=== PATIENT | male | born 1955 | race Caucasian/White ===

== ENCOUNTER → 2019-04-22 17:34 | Outpatient (CLI) | payer MEDICARE | END | disposition home or self-care (01) | LOC: D.LABREF 17:34 | PROVIDERS: ATTEND Orthopaedic Surgery | DX: M17.12 Unilateral primary osteoarthritis, left knee (principal) ==

== ENCOUNTER 2019-08-13 11:32 | Inpatient (IN) | payer MEDICARE ==
[~2019-08-13] VITALS: Ht 167.6 cm; Wt 119.0 kg
[2019-08-13] MEDS ORDERED: LISINOPRIL10 MG PO (11:42)
[2019-08-13 12:36] LABS: CALC OSMOLALITY 270 mosm/kg (275-300); CALCIUM 8.5 mg/dL (8.5-10.1); CARBON DIOXIDE 22.5 mmol/L (21.0-32.0); CHLORIDE - SERUM 96 mmol/L (98-107); CREATININE - SERUM 1.8 mg/dL (0.6-1.3); GLUCOSE 244 mg/dL (74-106); POTASSIUM - SERUM 4.8 mmol/L (3.5-5.1); SODIUM 129 mmol/L (136-145); UREA NITROGEN 25 mg/dL (7-18); eGFR NON AFRICAN AMERICAN 40 mL/min (90-120)
--- NOTE | 2019-08-13 12:40 | NUR ---
NASAL SWAB X 2 AND THROAT SWAB COLLECTED, LEBELED AT BS AND SENT TO LAB
[2019-08-13 12:42] LABS: INR 1.15 (0.85-1.17); PROTIME 13.9 SECONDS (11.6-15.0)
[2019-08-13 12:47] VITALS: BP 136/70
[2019-08-13 12:48] VITALS: BP 136/70
[2019-08-13 12:48] LABS: ALBUMIN 3.1 g/dL (3.4-5.0); ALKALINE PHOSPHATASE 85 U/L (30-120); ALT (SGPT) 44 U/L (10-68); BILIRUBIN - TOTAL 0.96 mg/dL (0.2-1.3); CKMB 4.2 U/L (0.0-3.6); CREATINE KINASE 419 UL (21-232); PROTEIN - SERUM 6.8 g/dL (6.4-8.2); THYROID STIMULATING HORMONE 0.25 uIU/mL (0.36-3.74)
[2019-08-13 12:48] LABS: HEMATOCRIT 37.6 % (42.0-54.0); LYMPHOCYTES 12.1 % (15-50); MCH 31.1 pg (26.0-34.0); MCHC 34.6 g/dL (31.0-37.0); MEAN PLATELET VOLUME 8.8 fL (7.4-10.4); NEUTROPHILS 81.8 % (40-80); PLATELET COUNT 193 10x3/uL (130-400); RBC 4.18 10x6/uL (4.20-6.10); RDW 13.5 % (11.5-14.5); WBC 3.8 10x3/uL (4.8-10.8)
[2019-08-13 12:51] LABS: TROPONIN-I < 0.017 ng/mL (0.000-0.060)
[2019-08-13 13:06] LABS: APTT 27.1 SECONDS (22.8-39.4)
--- NOTE | 2019-08-13 13:27 | NUR ---
URINE SPEC COLLECTED LABELED AT BS AND SENT TO LAB
--- NOTE | 2019-08-13 13:50 | NUR ---
RT OTAINED ABG'S PO2 75% PT PLACED ON O2 @ 2 L PNC. JOSE HOLLAND NOTIFIED
[2019-08-13 14:02] VITALS: BP 109/64
--- NOTE | 2019-08-13 14:20 | NUR ---
NICOLLE JUNG IC NOTIFIED OF PT BEING PUI.
[2019-08-13 14:25] LABS: BILIRUBIN NEGATIVE (NEGATIVE); EPITHELIAL CELLS 0-5 /hpf (0-5); GLUCOSE 100 mg/dL (NEGATIVE); KETONE NEGATIVE (NEGATIVE); NITRITE NEGATIVE (NEGATIVE); RED CELLS - URINE OCC /hpf (0-5); UROBILINOGEN 4 mg/dL (NORMAL); WHITE CELLS - URINE RARE /hpf (NEGATIVE)
[2019-08-13 14:26] LABS: AMORPHOUS SEDIMENT <1+ /lpf (NONE SEEN); BACTERIA FEW /hpf (NEGATIVE)
--- NOTE | 2019-08-13 14:34 | NUR ---
CRISIS NURSE SWAB COLLECTED, LABELED AT BS AND SENT TO LAB
--- NOTE | 2019-08-13 15:30 | NUR ---
CALLED REPORT TO ROSALINO HAINES
--- NOTE | 2019-08-13 16:32 | NUR ---
NEW PATIENT FROM ED VIA WC ACCOMPANIED BY HOSPITAL STAFF. PATIENT TRANSFERRED TO BED EASILY. PATIENT IS AWAKE ALERT AND ORIENTED X 4. ASSESMENT COMPLETED. PATIENT ORITNED TO ROOM AND CALL LIGHT. PATIENT DENIES ANY NEEDS OR PAIN. WILL CONTINUE TO MONITOR. SR UPX 2 BED IN LOW POSITION AND CALL LIGHT IN REACH.
[2019-08-13 16:38] VITALS: BP 142/76; Ht 167.6 cm; Wt 119.0 kg
--- NOTE | 2019-08-13 19:00 | NUR ---
EVENING ROUNDS COMPLETE. PT LAYING IN BED. NO SIGNS OF DISTRESS. PT DENIES ANY PAIN AT THIS TIME. CL IN REACH, BED IN LOWEST POSITION. PT EXPRESSES CONCEREN ABOUT HIS ANTIHYPERTENSIVE MEDICATIONS. UPDATED PT MED RX AND PAGED LISETTE CUNNINGHAM APN.
[2019-08-13] MEDS ORDERED: NORVASC10 MG PO (19:29)
[2019-08-13] MEDS ORDERED: CATAPRES0.1 MG PO (19:29)
[2019-08-14 04:50] LABS: HEMATOCRIT 36.1 % (42.0-54.0); HEMOGLOBIN 12.2 g/dL (13.5-17.5); MCH 30.9 pg (26.0-34.0); MCHC 33.8 g/dL (31.0-37.0); MCV 91.4 fL (80.0-100.0); MEAN PLATELET VOLUME 9.2 fL (7.4-10.4); PLATELET COUNT 193 10x3/uL (130-400); RBC 3.95 10x6/uL (4.20-6.10); RDW 13.4 % (11.5-14.5)
[2019-08-14 05:03] LABS: WBC 2.4 10x3/uL (4.8-10.8)
[2019-08-14 05:52] VITALS: BP 135/70
[2019-08-14 06:09] LABS: % SATURATION 46 % (15-55); IRON 96 ug/dl (35-150); TOTAL IRON BIND CAPACITY 205 ug/dl (260-445); UNSAT IRON BIND CAPACITY 109 ug/dl (150-375)
[2019-08-14 06:49] LABS: CALCIUM 8.6 mg/dL (8.5-10.1); CARBON DIOXIDE 21.6 mmol/L (21.0-32.0); PHOSPHOROUS 4.3 mg/dL (2.5-4.9); POTASSIUM - SERUM 4.6 mmol/L (3.5-5.1); T4 THYROXIN - FREE 1.21 ng/dL (0.76-1.46)
[2019-08-14 06:58] LABS: MAGNESIUM - SERUM 2.8 mg/dL (1.8-2.4)
[2019-08-14 06:59] LABS: CREATININE - SERUM 1.1 mg/dL (0.6-1.3)
[2019-08-14 08:16] VITALS: BP 140/82
[2019-08-14 10:59] LABS: LYMPHOCYTES 10 % (15-50); MONOCYTES 6 % (2-11); NEUTROPHILS 80 % (40-80); PLATELET ESTIMATE NORMAL
--- NOTE | 2019-08-14 12:44 | MORECARE ---
CASE MANAGEMENT DISCHARGE SUMMARY PATIENT: SAVANNA LI UNIT: [id number] ADM DATE: 08/13/19 AGE: 63 : 53 SEX: M ROOM/BED: D.2132 AUTHOR: FLORESITA DIAZ PHYSICIAN: REFERRING PHYSICIAN: JUAN MORALES MD DATE OF SERVICE: 08/14/19 Discharge Plan Patient Name: SAVANNA LI Facility: [facility]:[place] : 1955 Planned Disposition: Home Anticipated Discharge Date: 08/14/19 Discharge Date: Expected LOS: 1 Initial Reviewer: [email or web address] Initial Review Date: 08/14/2019 Generated: 08/14/19 1:43 pm DCPIA - Discharge Planning Initial Assessment Updated by [id number]: Prabhu Bernal on 08/14/19 12:40 pm * Is the patient Alert and Oriented? Yes * How many steps to enter\exit or inside your home? * PCP DR. HERNÁNDEZ * Pharmacy [facility] * Preadmission Environment Home Alone * ADLs Independent * Equipment None * Other Equipment NO MEDICAL EQUIPMENT PROVIDER PREFERENCE * List name and contact numbers for known caregivers / representatives who currently or will assist patient after discharge: LINDA ARCOS, , * Verbal permission to speak to the caregivers and representatives has been obtained from the patient. N/A * Community resources currently utilized None * Please name any agencies selected above. NONE * Additional services required to return to the preadmission environment? No * Can the patient safely return to the preadmission environment? Yes * Has this patient been hospitalized within the prior 30 days at any hospital? No Patient Name: SAVANNA LI Page [phone] at 1244 All edits/amendments must be made on the electronic document DICTATION DATE: 08/14/19 1243 PHOTOVOLTAIC POWER SYSTEMS ENGINEER: DELFINA 08/14/19 1243 RPT#: [id number] DC DATE: STATUS: ADM IN [facility] [address] [place] [address] END OF REPORT
--- NOTE | 2019-08-14 13:09 | MORECARE ---
CASE MANAGEMENT DISCHARGE SUMMARY PATIENT: SAVANNA LI UNIT: [id number] ADM DATE: 08/13/19 AGE: 63 : 53 SEX: M ROOM/BED: D.4422 AUTHOR: EMILY,DOC PHYSICIAN: REFERRING PHYSICIAN: JUAN MORALES MD DATE OF SERVICE: 08/14/19 Discharge Plan Patient Name: SAVANNA LI Facility: [facility]:[place] : 1955 Planned Disposition: Home Anticipated Discharge Date: 08/14/19 Discharge Date: Expected LOS: 1 Initial Reviewer: [email or web address] Initial Review Date: 08/14/2019 Generated: 08/14/19 2:08 pm Comments DCP- Discharge Planning Updated by [email or web address]: Prabhu Bernal on 08/14/19 12:[address] Patient Name: SAVANNA LI Admission Status: ER Accout number: [id number] Admission Date: 08-13-2019 : 1955 Admission Diagnosis: Attending: JUAN MORALES Current LOS: 1 Anticipated DC Date: 08-14-2019 Planned Disposition: Home Primary Insurance: MEDICARE A & B Discharge Planning Comments: CM SPOKE WITH PT VIA ROOM PHONE TO DISCUSS DISCHARGE PLANNING AND NEEDS. PT REPORTS LIVING AT HOME INDEPENDENTLY AND ALONE. PT HAS NO MEDICAL EQUIPMENT AND NO OUTSIDE SERVICES ASSISTING IN THE HOME. CM DISCUSSED AVAILABILITY OF HOME HEALTH, REHAB SERVICES AND MEDICAL EQUIPMENT. PT THINKS HE MIGHT NEED SOME REHAB BEFORE GOING HOME, REPORTS HE WILL CALL HIS BOSS AT "[place]" OR HIS NEPHEW WHO HAS A "WOMAN" THAT HAS A CAR AND SOMEONE WILL PICK HIM UP FOR DISCHARGE HOME. CM DISCUSSED REHAB PROVIDERS, LOCATIONS AND SERVICES. PT WOULD LIKE REHAB AT [place] IF NEEDED. CHOICE COMPLETED. PT REPORTS FEELING WEAK AND MAY LIKE REHAB AT [place] BEFORE GOING HOME. PT WILL NEED THERAPY EVALUATION ONCE CLEARED PER INFECTION CONTROL PROTOCOL. CM TO FOLLOW AND ASSIST NEEDED. Handle Attacher: Prabhu Bernal DCPIA - Discharge Planning Initial Assessment Updated by [email or web address]: Prabhu Bernal on 08/14/19 12:40 pm * Is the patient Alert and Oriented? Yes * How many steps to enter\\exit or inside your home? * PCP DR. HERNÁNDEZ * Pharmacy [facility] * Preadmission Environment Home Alone * ADLs Independent * Equipment None * Other Equipment NO MEDICAL EQUIPMENT PROVIDER PREFERENCE * List name and contact numbers for known caregivers / representatives who currently or will assist patient after discharge: LINDA ARCOS, , * Verbal permission to speak to the caregivers and representatives has been obtained from the patient. N/A * Community resources currently utilized None * Please name any agencies selected above. NONE * Additional services required to return to the preadmission environment? No * Can the patient safely return to the preadmission environment? Yes * Has this patient been hospitalized within the prior 30 days at any hospital? No Coverage Notice Reviewer: [id number] Margareth Bernal Notice Issued Date-Time: 08/14/2019 13:00 Notice Type: Patient Choice Letter Notice Delivered To: Patient Relationship to Patient: Golf Course Assistant Name: Delivery Method: HAND - Hand Delivered Temi Days: Prior Verbal Notification: Recipient Understood Notice: Yes Recipient Signature: Med Rec Note Co-signed by Attending: Coverage Notice Comment: [facility] INPATIENT REHAB SIGNATURE NOT OBTAINED DUE TO CURRENT INFECTION CONTROL PROTOCOL. Last DP export: 08/14/19 11:44 a Patient Name: SAVANNA LI Page [phone] at 1309 All edits/amendments must be made on the electronic document DICTATION DATE: 08/14/19 1308 PHYSIOTHERAPY PRACTICE MANAGER: DELFINA 08/14/19 1308 RPT#: [id number] DC DATE: STATUS: ADM IN [facility] [address] [place] [address] END OF REPORT
--- NOTE | 2019-08-14 13:22 | MORECARE ---
CASE MANAGEMENT DISCHARGE SUMMARY PATIENT: SAVANNA LI UNIT: [id number] ADM DATE: 08/13/19 AGE: 63 : 53 SEX: M ROOM/BED: D.6295 AUTHOR: EMILY,DOC PHYSICIAN: REFERRING PHYSICIAN: JUAN MORALES MD DATE OF SERVICE: 08/14/19 Discharge Plan Patient Name: SAVANNA LI Facility: [facility]:[place] : 1955 Planned Disposition: Home Anticipated Discharge Date: Discharge Date: Expected LOS: 0 Initial Reviewer: [email or web address] Initial Review Date: 08/14/2019 Generated: 08/14/19 2:21 pm Comments DCP- Discharge Planning Updated by [email or web address]: Prabhu Bernal on 08/14/19 12:[address] Patient Name: SAVANNA LI Admission Status: ER Accout number: [id number] Admission Date: 08-13-2019 : 1955 Admission Diagnosis: Attending: JUAN MORALES Current LOS: 1 Anticipated DC Date: 08-14-2019 Planned Disposition: Home Primary Insurance: MEDICARE A & B Discharge Planning Comments: CM SPOKE WITH PT VIA ROOM PHONE TO DISCUSS DISCHARGE PLANNING AND NEEDS. PT REPORTS LIVING AT HOME INDEPENDENTLY AND ALONE. PT HAS NO MEDICAL EQUIPMENT AND NO OUTSIDE SERVICES ASSISTING IN THE HOME. CM DISCUSSED AVAILABILITY OF HOME HEALTH, REHAB SERVICES AND MEDICAL EQUIPMENT. PT THINKS HE MIGHT NEED SOME REHAB BEFORE GOING HOME, REPORTS HE WILL CALL HIS BOSS AT "[place]ATION" OR HIS NEPHEW WHO HAS A "WOMAN" THAT HAS A CAR AND SOMEONE WILL PICK HIM UP FOR DISCHARGE HOME. CM DISCUSSED REHAB PROVIDERS, LOCATIONS AND SERVICES. PT WOULD LIKE REHAB AT [place] IF NEEDED. CHOICE COMPLETED. PT REPORTS FEELING WEAK AND MAY LIKE REHAB AT [place] BEFORE GOING HOME. PT WILL NEED THERAPY EVALUATION ONCE CLEARED PER INFECTION CONTROL PROTOCOL. CM TO FOLLOW AND ASSIST NEEDED. Centrifugal Chiller Technician: Prabhu Bernal DCPIA - Discharge Planning Initial Assessment Updated by [email or web address]: Prabhu Bernal on 08/14/19 12:40 pm * Is the patient Alert and Oriented? Yes * How many steps to enter\\exit or inside your home? * PCP DR. HERNÁNDEZ * Pharmacy [facility] * Preadmission Environment Home Alone * ADLs Independent * Equipment None * Other Equipment NO MEDICAL EQUIPMENT PROVIDER PREFERENCE * List name and contact numbers for known caregivers / representatives who currently or will assist patient after discharge: LINDA ARCOS, SISTER, * Verbal permission to speak to the caregivers and representatives has been obtained from the patient. N/A * Community resources currently utilized None * Please name any agencies selected above. NONE * Additional services required to return to the preadmission environment? No * Can the patient safely return to the preadmission environment? Yes * Has this patient been hospitalized within the prior 30 days at any hospital? No Coverage Notice Reviewer: [id number] Margareth Bernal Notice Issued Date-Time: 08/14/2019 13:00 Notice Type: Patient Choice Letter Notice Delivered To: Patient Relationship to Patient: Tarring Machine Operator Name: Delivery Method: HAND - Hand Delivered Temi Days: Prior Verbal Notification: Recipient Understood Notice: Yes Recipient Signature: Med Rec Note Co-signed by Attending: Coverage Notice Comment: [facility] INPATIENT REHAB SIGNATURE NOT OBTAINED DUE TO CURRENT INFECTION CONTROL PROTOCOL. Last DP export: 08/14/19 12:09 p Patient Name: SAVANNA LI Page [phone] at 1322 All edits/amendments must be made on the electronic document DICTATION DATE: 08/14/19 1321 PRODUCTION HONING MACHINE OPERATOR: DELFINA 08/14/19 1321 RPT#: [id number] DC DATE: STATUS: ADM IN [facility] [address] [place] [address] END OF REPORT
[2019-08-15] VITALS: BP 137/65
--- NOTE | 2019-08-15 00:20 | NUR ---
PATIENT IS ALERT AND ORENTED ABLE TO VOICE NEEDS AND WANTS TO STAFF. BRASE IN PLACE TO LEFT KNEE. IV TO LEFT FOREARM IN PLACE AND PATIENT WITH NO REDNESS OR PAIN. IV TO RIGHT AC PRESENTED WITH PAIN AND RED AREA WITH RESTART OF IV AFTER SHOWER, IV INFILLTRATED AND REMOVED WITH NO FUTHER PROBLEMS. BED LOW WATER AND CALL LIGHT IN REACH.
[2019-08-15 04:22] LABS: BASOPHILS 0.7 % (0-2); EOSINOPHILS 0.7 % (0-7); HEMATOCRIT 33.4 % (42.0-54.0); LYMPHOCYTES 21.7 % (15-50); MCH 30.6 pg (26.0-34.0); MCHC 32.9 g/dL (31.0-37.0); MCV 92.8 fL (80.0-100.0); MEAN PLATELET VOLUME 8.7 fL (7.4-10.4); MONOCYTES 10.7 % (2-11); NEUTROPHILS 65.2 % (40-80); PLATELET COUNT 183 10x3/uL (130-400); RDW 13.5 % (11.5-14.5); WBC 2.9 10x3/uL (4.8-10.8)
[2019-08-15 04:43] LABS: CALCIUM 7.8 mg/dL (8.5-10.1); CARBON DIOXIDE 25.6 mmol/L (21.0-32.0); CHLORIDE - SERUM 101 mmol/L (98-107); CREATININE - SERUM 0.9 mg/dL (0.6-1.3); MAGNESIUM - SERUM 2.4 mg/dL (1.8-2.4); POTASSIUM - SERUM 4.7 mmol/L (3.5-5.1); SODIUM 132 mmol/L (136-145); eGFR NON AFRICAN AMERICAN 90 mL/min (90-120)
[2019-08-15 04:48] LABS: CALC OSMOLALITY 268 mosm/kg (275-300); GLUCOSE 113 mg/dL (74-106); PHOSPHOROUS 3.2 mg/dL (2.5-4.9); UREA NITROGEN 22 mg/dL (7-18)
--- NOTE | 2019-08-15 08:00 | NUR ---
AM ROUNDS COMPLETED. INTRODUCED MYSELF TO PT PRIMARY RN FOR TODAYS SHIFT. PT IS A&O SITTING UP IN BED RESTING QUIETLY. SHIFT ASSESSMENT COMPLETED. PT STATES HE SLEPT WELL AND DENIES ANY CURRENT PAIN OR IMMEDIATE NEEDS. BREAKFAST HERE NOW. WILL ALLOW PT TO EAT. CL IN REACH, BED IN LOWEST, SIDE RAILS X2. WILL CPOC.
[2019-08-15 08:48] VITALS: BP 131/72
[2019-08-15] MEDS ORDERED: SYMBICORT 80-10.2 GM INH (09:13)
[2019-08-15] MEDS ORDERED: VENTOLIN HFA [SP8 GM INH (09:14)
--- NOTE | 2019-08-15 09:23 | NUR ---
PT SITTING UP ON EDGE OF BED AND APPEARS TO HAVE LABORED BREATHING. LUNGS HAVE EXPIRATORY WHEEZING THROUGHOUT ALL LOBES. PT STATES HE WAS COUGHING UP SOME SPUTUM BUT LESS NOW. PT DOES HAVE PRN BREATHING TREATMENT ORDERS AND I CALLED RESPIRATORY TO DELIVER ONE. PULSE OX READS 96% ON RA AND PT DOESNT NORMALLY REQUIRE OXYGEN SO I WILL TRY AND NOT USE OXYGEN UNLESS ABSOLUTELY NECCESSARY. PT VOICED THANKS AND DENIES ANY CURRENT PAIN OR NEEDS AT THIS TIME. CL IN REACH, BED IN LOWEST, SIDE RAILS X2. WILL CPOC.
[2019-08-15 10:08] LABS: ERYTHROPOIETIN 2.1 mIU/mL (2.6-18.5); THYROGLOBULIN ANTIBODY <1.0 IU/mL (0.0-0.9); THYROID PEROXIDASE ABS 18 IU/mL (0-34)
[2019-08-15] MEDS ORDERED: OMNICEF300 MG PO (10:58)
[2019-08-15] MEDS ORDERED: ZITHROMAX500 MG PO (10:58)
--- NOTE | 2019-08-15 11:25 | NUR ---
EMPTIED BEDSIDE URINAL OF 275CC DARK YELLOW URINE. PT IS GOING TO BE DISCHARGED, HE IS LYING ON HIS LEFT SIDE TALKING ON THE PHONE RIGHT NOW. NO IMMEDIATE NEEDS. WILL BEGIN DISCHARGE PAPER WORK UP AND CPOC.
--- NOTE | 2019-08-15 11:46 | NUR ---
PTS KIERRA PIV WAS ACCIDENTLY PULLED OUT IN BED. D/C WITH CATHETER TIP FULLY INTACT. PT STILL TALKING ON THE PHONE. WILL WAIT ON DISCHARGE PAPERS AND THEN REVIEW IT.
--- NOTE | 2019-08-15 12:10 | EC ---
PATIENT:SAVANNA LI DATE OF SERVICE: 08/13/19 SEX: M MEDICAL RECORD: [id number] DATE OF : [birth year] LOCATION:D.M2 D.210 AGE OF PATIENT: 63 ADMISSION DATE: 08/13/19 REFERRING PHYSICIAN: INTERPRETING PHYSICIAN: DONNIE VIDAL MD ECHOCARDIOGRAM REPORT ECHO CHARGES 4 ECHO COMPLETE Date: 08/14/19 CLINICAL DIAGNOSIS: EDEMA/SOB H/O HTN ECHOCARDIOGRAPHIC MEASUREMENTS (adult normal given) AC root (d.<3.7cm) 3.3 cm LV Septum d (<1.2 cm> 1.8 cm Valve Excursion 1.9 cm LV Septum (systole) 2.3 cm Left Atria (s.<4.0cm> 4.9 cm LVPW d(<1.2cm) 1.8 cm RV (d.<2.3cm) 3.5 cm LVPW (sytole) 2.3 cm LV diastole(<5.6CM) 5.3 cm MV E-F(>70mm/sec) cm LV systole 2.7 cm LVOT Diameter 2.2 cm MV exc.(>10mm) cm Est.ejection fraction (50-75%) % DOPPLER: LVIT cm/sec A 38.0 cm/sec E 105 cm/sec LA cm/sec RVSP 39.3 mmHg LVOT 112 cm/sec AOP1/2T m/s Asc. Ao 162 cm/sec RVOT 60.0 cm/sec RA cm/sec PA 117 cm/sec AV Gradient Peak 11.0 mmHg AV Mean 6.0 mmHg AV Area 2.1 cm MV Gradient Peak 7.0 mmHg MV Mean 1.7 mmHg MV Area cm COMMENTS: Burn Center Nurse: Chen EMOE Gear Setter: 3 Dr. Chaidez TAPE# PACS Pericardial Effusion N DATE OF SERVICE: Adequate 2D, color flow imaging, spectral Doppler, and M-Mode. LVH is present. LV internal dimensions are normal. Wall motion is normal. EF greater than or equal to 55%. Aortic valve is sclerotic. There is no evidence of stenosis by Doppler interrogation. Left atrium dilated at 4.9 cm. Mitral valve shows no prolapse. Mild MR. Right-sided chambers appear grossly normal. Ndiz-pn-[id number] TR with flow imaging. ECHOCARDIOGRAM REPORT [id number] SAVANNA LI TRANSINT:[id number] Voice Confirmation ID: [id number] DOCUMENT ID: [id number] DONNIE VIDAL MD at 1210 CC: [id number] DICTATION DATE: 08/14/191411 INSURANCE SPECIAL AGENT: 08/14/19 1644 ADM IN [facility] [address] [place] [address]
[2019-08-15 12:18] VITALS: BP 130/78
--- NOTE | 2019-08-15 12:51 | NUR ---
PT STATES HE IS TOO WEAK TO BE DISCHARGED. DISCUSSED WITH PRIMARY AND WILL HAVE PHYSICAL THERAPY EVALUATE PT FOR INPATIENT REHAB. ALSO APPARENTLY PT NEEDS TO BE BACK ON ISOLATION FOR COVID-19 FOR RETESTING EVEN THOUGH PRESUMPTIVE TEST WAS NEGATIVE. PT IS SHOWING NO S/S AND HAS BEEN AFEBRILE AND STAFF HAS BEEN INTERACTING WITHOUT PROTECTION!
--- NOTE | 2019-08-15 13:48 | MORECARE ---
CASE MANAGEMENT DISCHARGE SUMMARY PATIENT: SAVANNA LI UNIT: [id number] ADM DATE: 08/13/19 AGE: 63 : 51 SEX: M ROOM/BED: D.4846 AUTHOR: EMILY,DOC PHYSICIAN: REFERRING PHYSICIAN: JUAN MORALES MD DATE OF SERVICE: 08/15/19 Discharge Plan Patient Name: SAVANNA LI Facility: [facility]:[place] : 1955 Planned Disposition: Inpatient Rehab Anticipated Discharge Date: 08/15/19 Discharge Date: Expected LOS: 2 Initial Reviewer: [id number] Initial Review Date: 08/14/2019 Generated: 08/15/19 2:48 pm Comments DCP- Discharge Planning Updated by [id number]: Prabhu Bernal on 08/14/19 12:[address] Patient Name: SAVANNA LI Admission Status: ER Accout number: [id number] Admission Date: 08-13-2019 : 1955 Admission Diagnosis: Attending: JUAN MORALES Current LOS: 1 Anticipated DC Date: 08-14-2019 Planned Disposition: Home Primary Insurance: MEDICARE A & B Discharge Planning Comments: CM SPOKE WITH PT VIA ROOM PHONE TO DISCUSS DISCHARGE PLANNING AND NEEDS. PT REPORTS LIVING AT HOME INDEPENDENTLY AND ALONE. PT HAS NO MEDICAL EQUIPMENT AND NO OUTSIDE SERVICES ASSISTING IN THE HOME. CM DISCUSSED AVAILABILITY OF HOME HEALTH, REHAB SERVICES AND MEDICAL EQUIPMENT. PT THINKS HE MIGHT NEED SOME REHAB BEFORE GOING HOME, REPORTS HE WILL CALL HIS BOSS AT "[place]ATION" OR HIS NEPHEW WHO HAS A "WOMAN" THAT HAS A CAR AND SOMEONE WILL PICK HIM UP FOR DISCHARGE HOME. CM DISCUSSED REHAB PROVIDERS, LOCATIONS AND SERVICES. PT WOULD LIKE REHAB AT [place] IF NEEDED. CHOICE COMPLETED. PT REPORTS FEELING WEAK AND MAY LIKE REHAB AT [place] BEFORE GOING HOME. PT WILL NEED THERAPY EVALUATION ONCE CLEARED PER INFECTION CONTROL PROTOCOL. CM TO FOLLOW AND ASSIST NEEDED. Construction Management Assistant: Prabhu Bernal DCPIA - Discharge Planning Initial Assessment Updated by [id number]: rPabhu Bernal on 08/14/19 12:40 pm * Is the patient Alert and Oriented? Yes * How many steps to enter\\exit or inside your home? * PCP DR. HERNÁNDEZ * Pharmacy [facility] * Preadmission Environment Home Alone * ADLs Independent * Equipment None * Other Equipment NO MEDICAL EQUIPMENT PROVIDER PREFERENCE * List name and contact numbers for known caregivers / representatives who currently or will assist patient after discharge: SISTER CONN, * Verbal permission to speak to the caregivers and representatives has been obtained from the patient. N/A * Community resources currently utilized None * Please name any agencies selected above. NONE * Additional services required to return to the preadmission environment? No * Can the patient safely return to the preadmission environment? Yes * Has this patient been hospitalized within the prior 30 days at any hospital? No Coverage Notice Reviewer: [id number] Margareth Bernal Notice Issued Date-Time: 08/14/2019 13:00 Notice Type: Patient Choice Letter Notice Delivered To: Patient Relationship to Patient: Heater Engineer Helper Name: Delivery Method: HAND - Hand Delivered Temi Days: Prior Verbal Notification: Recipient Understood Notice: Yes Recipient Signature: Med Rec Note Co-signed by Attending: Coverage Notice Comment: [facility] INPATIENT REHAB SIGNATURE NOT OBTAINED DUE TO CURRENT INFECTION CONTROL PROTOCOL. Reviewer: [id number] Margareth Bernal Notice Issued Date-Time: 08/15/2019 11:45 Notice Type: Patient Choice Letter Notice Delivered To: Patient Relationship to Patient: Heater Engineer Helper Name: Delivery Method: HAND - Hand Delivered Temi Days: Prior Verbal Notification: Recipient Understood Notice: Yes Recipient Signature: Yes Med Rec Note Co-signed by Attending: Coverage Notice Comment: [facility] INPATIENT REHAB Last DP export: 08/14/19 12:22 p Patient Name: SAVANNA LI Page [phone] at 1348 All edits/amendments must be made on the electronic document DICTATION DATE: 08/15/19 1347 CLIENT RELATIONSHIP EXECUTIVE: DELFINA 08/15/19 1347 RPT#: [id number] DC DATE: STATUS: ADM IN [facility] [address] [place] [address] END OF REPORT
--- NOTE | 2019-08-15 14:14 | MORECARE ---
CASE MANAGEMENT DISCHARGE SUMMARY PATIENT: SAVANNA LI UNIT: [id number] ADM DATE: 08/13/19 AGE: 63 : 51 SEX: M ROOM/BED: D.2104 AUTHOR: EMILY,DOC PHYSICIAN: REFERRING PHYSICIAN: JUAN MORALES MD DATE OF SERVICE: 08/15/19 Discharge Plan Patient Name: SAVANNA LI Facility: [facility]:[place] : 1955 Planned Disposition: Inpatient Rehab Anticipated Discharge Date: 08/15/19 Discharge Date: Expected LOS: 2 Initial Reviewer: [id number] Initial Review Date: 08/14/2019 Generated: 08/15/19 3:14 pm Comments DCP- Discharge Planning Updated by [email or web address]: Prabhu Bernal on 08/15/19 1:[address] Patient Name: SAVANNA LI Encounter No: [id number] : 1955 Primary Insurance: MEDICARE A & B Anticipated DC Date: 08-15-2019 Planned Disposition: Inpatient Rehab External Planned Provider: [facility] INPATIENT REHAB DCP follow-up note: CM RECEIVED DISCHARGE ORDER, MET WITH PT IN ROOM TO DISCUSS DISCHARGE PLANNING AND NEEDS. PT REPORTS HE NEEDS REHAB PRIOR TO GOING HOME. PT LIVES ALONE. PT STILL WANTS REHAB AT [place]. CHOICE COMPLETED AND SIGNED BY PT. CM SPOKE TO JAY OF INPATIENT REHAB, PT IS PENDING PHYSICAL THERAPY EVALUATION AND WILL ACCEPT IF PT QUALIFIES. PT PLACED BACK ON ISOLATION FOR PENDING COVID 19 TESTING, REHAB WILL NOT ACCEPT UNTIL RESULT IS BACK. INPATIENT REHAB PRESCREENING ORDER OBTAINED, PT SEEN AND EVALUATED BY THERAPY. THERAPY HAS SEEN PT, CM SPOKE TO JAY WHO REPORTS THEY WILL ACCEPT PT ONCE COVID 19 TEST IS RESULTED NEGATIVE. QUINTON SPOKE TO ARIAS MCLEAN, QUINTON SPOKE TO PT VIA PHONE WHO STATES HE IS NOT ABLE TO SELF QUARANTINE HIMSELF AT HOME AND WANTS TO STAY FOR REHAB, PT UNDERSTANDS HIS COVID 19 TEST WILL HAVE TO HAVE NEGATIVE RESULT. QUINTON DISCUSSED IMPORTANT MESSAGE FROM MEDICARE AND THEN PASSED COPY TO PT IN ROOM. WHEN NEGATIVE RESULT RECEIVED FOR COVID 19 TESTING, NOTIFY INPATIENT REHAB AT [place] WHO WILL ACCEPT PT FOR INPATIENT REHAB. Prabhu Bernal, CASE MANAGEMENT DCP- Discharge Planning Updated by [id number]: Prabhu Bernal on 08/14/19 12:[address] Patient Name: SAVANNA LI Admission Status: ER Accout number: [id number] Admission Date: 08-13-2019 : 1955 Admission Diagnosis: Attending: JUAN MORALES Current LOS: 1 Anticipated DC Date: 08-14-2019 Planned Disposition: Home Primary Insurance: MEDICARE A & B Discharge Planning Comments: CM SPOKE WITH PT VIA ROOM PHONE TO DISCUSS DISCHARGE PLANNING AND NEEDS. PT REPORTS LIVING AT HOME INDEPENDENTLY AND ALONE. PT HAS NO MEDICAL EQUIPMENT AND NO OUTSIDE SERVICES ASSISTING IN THE HOME. CM DISCUSSED AVAILABILITY OF HOME HEALTH, REHAB SERVICES AND MEDICAL EQUIPMENT. PT THINKS HE MIGHT NEED SOME REHAB BEFORE GOING HOME, REPORTS HE WILL CALL HIS BOSS AT "[place]ATION" OR HIS NEPHEW WHO HAS A "WOMAN" THAT HAS A CAR AND SOMEONE WILL PICK HIM UP FOR DISCHARGE HOME. CM DISCUSSED REHAB PROVIDERS, LOCATIONS AND SERVICES. PT WOULD LIKE REHAB AT [place] IF NEEDED. CHOICE COMPLETED. PT REPORTS FEELING WEAK AND MAY LIKE REHAB AT [place] BEFORE GOING HOME. PT WILL NEED THERAPY EVALUATION ONCE CLEARED PER INFECTION CONTROL PROTOCOL. CM TO FOLLOW AND ASSIST NEEDED. Draw Operator: Prabhu Bernal DCPIA - Discharge Planning Initial Assessment Updated by [id number]: Prabhu Bernal on 08/14/19 12:40 pm * Is the patient Alert and Oriented? Yes * How many steps to enter\\exit or inside your home? * PCP DR. HERNÁNDEZ * Pharmacy [facility] * Preadmission Environment Home Alone * ADLs Independent * Equipment None * Other Equipment NO MEDICAL EQUIPMENT PROVIDER PREFERENCE * List name and contact numbers for known caregivers / representatives who currently or will assist patient after discharge: LINDA ARCOS, SISTER, * Verbal permission to speak to the caregivers and representatives has been obtained from the patient. N/A * Community resources currently utilized None * Please name any agencies selected above. NONE * Additional services required to return to the preadmission environment? No * Can the patient safely return to the preadmission environment? Yes * Has this patient been hospitalized within the prior 30 days at any hospital? No Coverage Notice Reviewer: [email or web address] - Prabhu Bernal Notice Issued Date-Time: 08/14/2019 13:00 Notice Type: Patient Choice Letter Notice Delivered To: Patient Relationship to Patient: Oracle Application Architect Name: Delivery Method: HAND - Hand Delivered Temi Days: Prior Verbal Notification: Recipient Understood Notice: Yes Recipient Signature: Med Rec Note Co-signed by Attending: Coverage Notice Comment: [facility] INPATIENT REHAB SIGNATURE NOT OBTAINED DUE TO CURRENT INFECTION CONTROL PROTOCOL. Reviewer: [id number] - Prabhu Bernal Notice Issued Date-Time: 08/15/2019 11:45 Notice Type: Patient Choice Letter Notice Delivered To: Patient Relationship to Patient: Oracle Application Architect Name: Delivery Method: HAND - Hand Delivered Temi Days: Prior Verbal Notification: Recipient Understood Notice: Yes Recipient Signature: Yes Med Rec Note Co-signed by Attending: Coverage Notice Comment: [facility] INPATIENT REHAB Last DP export: 08/15/19 12:48 p Patient Name: SAVANNA LI Page [phone] at 1414 All edits/amendments must be made on the electronic document DICTATION DATE: 08/15/19 141 MUSIC CRITIC: DELFINA 08/15/19 1414 RPT#: [id number] DC DATE: STATUS: ADM IN [facility] [address] [place] [address] END OF REPORT
--- NOTE | 2019-08-15 14:49 | NUR ---
PT GOING INTO ISOLATION DROPLET FOR COVID-19 TESTING. SHIFT REPORT GIVEN TO COVID-19 CARE NURSE ROSALINO GARDINER.
--- NOTE | 2019-08-15 15:00 | NUR ---
NEW PATIENT TRANSFER FROM ROOM 1207 TO ISOLATION ROOM 2135 FOR APPERANT AMENDED COVID 19 TEST. PATIENT IS AWARE OF REASONS FOR CHANGE. PATIENT IS CALM AND COOPERATIVE. PATIENT DENIES ANY NEEDS OR PAIN. PATIENT ORIENTED TO ROOM AND CALL LIGHT . BED IN LOWEST SR UP X 2 AND CALL LIGHT IN REACH. WILL CPOC.
--- NOTE | 2019-08-15 15:24 | NUR ---
Rehab Prescreening Consult recieved and the chart has been reviewed. He meets [facility] criteria and will be accepted if and when is COVID 19 retest is negative. Recieved a call from the Rajinder Bernal stating infection control had called and placed patient back on isolation pending a retesting for COVID 19. Called and spoke to Ambar Minor RN IC. She states the original test will be ran again and patient is not to be moved to rehab until his results are negative. Verónica Hagan RN Clinical liaison, Rehab
[2019-08-15 21:46] VITALS: BP 140/72
[2019-08-16 06:56] LABS: BASOPHILS 1.1 % (0-2); EOSINOPHILS 2.3 % (0-7); HEMATOCRIT 33.6 % (42.0-54.0); HEMOGLOBIN 11.1 g/dL (13.5-17.5); IMMATURE GRANULOCYTES 1.1 % (0-5); MCH 30.8 pg (26.0-34.0); MCV 93.3 fL (80.0-100.0); MONOCYTES 12.6 % (2-11); NEUTROPHILS 49.9 % (40-80); PLATELET COUNT 176 10x3/uL (130-400); RDW 13.5 % (11.5-14.5); WBC 2.6 10x3/uL (4.8-10.8)
[2019-08-16 07:09] LABS: CALC OSMOLALITY 268 mosm/kg (275-300); CALCIUM 8.6 mg/dL (8.5-10.1); CARBON DIOXIDE 27.9 mmol/L (21.0-32.0); CHLORIDE - SERUM 101 mmol/L (98-107); CREATININE - SERUM 0.9 mg/dL (0.6-1.3); GLUCOSE 104 mg/dL (74-106); MAGNESIUM - SERUM 2.2 mg/dL (1.8-2.4); PHOSPHOROUS 3.8 mg/dL (2.5-4.9); POTASSIUM - SERUM 4.5 mmol/L (3.5-5.1); SODIUM 134 mmol/L (136-145); eGFR NON AFRICAN AMERICAN 90 mL/min (90-120)
[2019-08-16 07:10] LABS: UREA NITROGEN 14 mg/dL (7-18)
--- NOTE | 2019-08-16 07:26 | NUR ---
PT AWAKE AND ORIENTED, NO COMPLAINTS OR CONCERNS AT THIS TIME. NO VISITORS AT BEDSIDE. CL IN REACH, SRX2.
--- NOTE | 2019-08-16 12:42 | NUR ---
PT ESCORTED OUT VIA WHEELCHAIR DOWNSTAIRS TO REHAB.
--- NOTE | 2019-08-16 15:31 | MORECARE ---
CASE MANAGEMENT DISCHARGE SUMMARY PATIENT: SAVANNA LI UNIT: [id number] ADM DATE: 08/13/19 AGE: 63 : 51 SEX: M ROOM/BED: D.3209 AUTHOR: FLORESITA DIAZ PHYSICIAN: REFERRING PHYSICIAN: JUAN MORALES MD DATE OF SERVICE: 08/16/19 Discharge Plan Patient Name: SAVANNA LI Facility: [facility]:[place] : 1955 Planned Disposition: Inpatient Rehab Anticipated Discharge Date: 08/15/19 Discharge Date: 08/16/2019 Expected LOS: 2 Initial Reviewer: [id number] Initial Review Date: 08/14/2019 Generated: 08/16/19 4:30 pm Comments DCP- Discharge Planning Updated by [id number]: Malathi Ratliff on 08/16/19 2:[address] Patient Name: SAVANNA LI Encounter No: [id number] : 1955 Primary Insurance: MEDICARE A & B Anticipated DC Date: 08-15-2019 Planned Disposition: Inpatient Rehab External Planned Provider: : LATE ENTRY. ASSESSMENT COMPLETED AT 0830 08/16/2019 DCP follow-up note: CM RECIEVED RESULTS OF COVID -19 FROM NURSING. CALLED PATIENT TO VERIFY PLANS TO TRANSFER TO REHAB UPON DC. PATIENT IS AGEABLE WITH THIS PLAN. DCC IMM PROVIDED VIA PHONE CONVERSATION. CM CALLED REHAB AND SPOKE WITH OLGA. PROVIDED RESULTS OF THE NEGATIVE COVID TEST, REHAB IS IN AGREEMENT TO ADMIT PATIENT UPON DC. CM CALLED MARICEL AND PROVIDED ASSESSMENTS. MARICEL AND DR MORALES ARE IN AGREEMENT TO DC PATIENT TO IP REHAB. Malathi Ratliff MSN,RN, CM DCP- Discharge Planning Updated by [id number]: Prabhu Bernal on 08/15/19 1:[address] Patient Name: SAVANNA LI Encounter No: [id number] : 1955 Primary Insurance: MEDICARE A & B Anticipated DC Date: 08-15-2019 Planned Disposition: Inpatient Rehab External Planned Provider: [facility] INPATIENT REH[facility] DCP follow-up note: CM RECEIVED DISCHARGE ORDER, MET WITH PT IN ROOM TO DISCUSS DISCHARGE PLANNING AND NEEDS. PT REPORTS HE NEEDS REHAB PRIOR TO GOING HOME. PT LIVES ALONE. PT STILL WANTS REHAB AT [place]. CHOICE COMPLETED AND SIGNED BY PT. CM SPOKE TO JAY OF INPATIENT REHAB, PT IS PENDING PHYSICAL THERAPY EVALUATION AND WILL ACCEPT IF PT QUALIFIES. PT PLACED BACK ON ISOLATION FOR PENDING COVID 19 TESTING, REHAB WILL NOT ACCEPT UNTIL RESULT IS BACK. INPATIENT REHAB PRESCREENING ORDER OBTAINED, PT SEEN AND EVALUATED BY THERAPY. THERAPY HAS SEEN PT, CM SPOKE TO JAY WHO REPORTS THEY WILL ACCEPT PT ONCE COVID 19 TEST IS RESULTED NEGATIVE. CM SPOKE TO ARIAS MCLEAN, CM SPOKE TO PT VIA PHONE WHO STATES HE IS NOT ABLE TO SELF QUARANTINE HIMSELF AT HOME AND WANTS TO STAY FOR REHAB, PT UNDERSTANDS HIS COVID 19 TEST WILL HAVE TO HAVE NEGATIVE RESULT. CM DISCUSSED IMPORTANT MESSAGE FROM MEDICARE AND THEN PASSED COPY TO PT IN ROOM. WHEN NEGATIVE RESULT RECEIVED FOR COVID 19 TESTING, NOTIFY INPATIENT REHAB AT [place] WHO WILL ACCEPT PT FOR INPATIENT REHAB. Prabhu Bernal, CASE MANAGEMENT DCP- Discharge Planning Updated by [id number]: Prabhu Bernal on 08/14/19 12:[address] Patient Name: SAVANNA LI Admission Status: ER Accout number: [id number] Admission Date: 08-13-2019 : 1955 Admission Diagnosis: Attending: JUAN MORALES Current LOS: 1 Anticipated DC Date: 08-14-2019 Planned Disposition: Home Primary Insurance: MEDICARE A & B Discharge Planning Comments: CM SPOKE WITH PT VIA ROOM PHONE TO DISCUSS DISCHARGE PLANNING AND NEEDS. PT REPORTS LIVING AT HOME INDEPENDENTLY AND ALONE. PT HAS NO MEDICAL EQUIPMENT AND NO OUTSIDE SERVICES ASSISTING IN THE HOME. CM DISCUSSED AVAILABILITY OF HOME HEALTH, REHAB SERVICES AND MEDICAL EQUIPMENT. PT THINKS HE MIGHT NEED SOME REHAB BEFORE GOING HOME, REPORTS HE WILL CALL HIS BOSS AT "THE STATION" OR HIS NEPHEW WHO HAS A "WOMAN" THAT HAS A CAR AND SOMEONE WILL PICK HIM UP FOR DISCHARGE HOME. CM DISCUSSED REHAB PROVIDERS, LOCATIONS AND SERVICES. PT WOULD LIKE REHAB AT [place] IF NEEDED. CHOICE COMPLETED. PT REPORTS FEELING WEAK AND MAY LIKE REHAB AT [place] BEFORE GOING HOME. PT WILL NEED THERAPY EVALUATION ONCE CLEARED PER INFECTION CONTROL PROTOCOL. CM TO FOLLOW AND ASSIST NEEDED. Store Operations Manager: Prabhu Bernal DCPIA - Discharge Planning Initial Assessment Updated by [id number]: Prabhu Bernal on 08/14/19 12:40 pm * Is the patient Alert and Oriented? Yes * How many steps to enter\\exit or inside your home? * PCP DR. HERNÁNDEZ * Pharmacy [facility] * Preadmission Environment Home Alone * ADLs Independent * Equipment None * Other Equipment NO MEDICAL EQUIPMENT PROVIDER PREFERENCE * List name and contact numbers for known caregivers / representatives who currently or will assist patient after discharge: LINDA ARCOS, SISTER, * Verbal permission to speak to the caregivers and representatives has been obtained from the patient. N/A * Community resources currently utilized None * Please name any agencies selected above. NONE * Additional services required to return to the preadmission environment? No * Can the patient safely return to the preadmission environment? Yes * Has this patient been hospitalized within the prior 30 days at any hospital? No Coverage Notice Reviewer: [id number] Margareth Bernal Notice Issued Date-Time: 08/14/2019 13:00 Notice Type: Patient Choice Letter Notice Delivered To: Patient Relationship to Patient: Gluer And Slicer Hand Name: Delivery Method: HAND - Hand Delivered Temi Days: Prior Verbal Notification: Recipient Understood Notice: Yes Recipient Signature: Med Rec Note Co-signed by Attending: Coverage Notice Comment: [facility] INPATIENT REH[facility] SIGNATURE NOT OBTAINED DUE TO CURRENT INFECTION CONTROL PROTOCOL. Reviewer: [id number] - Prabhu Bernal Notice Issued Date-Time: 08/15/2019 11:45 Notice Type: Patient Choice Letter Notice Delivered To: Patient Relationship to Patient: Gluer And Slicer Hand Name: Delivery Method: HAND - Hand Delivered Temi Days: Prior Verbal Notification: Recipient Understood Notice: Yes Recipient Signature: Yes Med Rec Note Co-signed by Attending: Coverage Notice Comment: [facility] INPATIENT [facility] Reviewer: [id number] Margareth Ratliff Notice Issued Date-Time: 08/16/2019 8:30 Notice Type: IM Discharge Notice Notice Delivered To: Patient Relationship to Patient: Gluer And Slicer Hand Name: Delivery Method: HAND - Hand Delivered Temi Days: Prior Verbal Notification: Recipient Understood Notice: Yes Recipient Signature: Yes Med Rec Note Co-signed by Attending: Coverage Notice Comment: DC IMM PROVIDED Last DP export: 08/15/19 1:14 p Patient Name: SAVANNA LI Page [phone] at 1531 All edits/amendments must be made on the electronic document DICTATION DATE: 08/16/191529 CANNON FIRE DIRECTION SPECIALIST: DELFINA 08/16/191529 RPT#: [id number] DC DATE:08/16/19 STATUS: DIS IN [facility] [address] [place] [address] END OF REPORT
--- NOTE | 2019-08-16 15:37 | MORECARE ---
CASE MANAGEMENT DISCHARGE SUMMARY PATIENT: SAVANNA LI UNIT: [id number] ADM DATE: 08/13/19 AGE: 63 : 51 SEX: M ROOM/BED: D.8690 AUTHOR: FLORESITA DIAZ PHYSICIAN: REFERRING PHYSICIAN: JUAN MORALES MD DATE OF SERVICE: 08/16/19 Discharge Plan Patient Name: SAVANNA LI Facility: [facility]:[place] : 1955 Planned Disposition: Inpatient Rehab Anticipated Discharge Date: 08/15/19 Discharge Date: 08/16/2019 Expected LOS: 2 Initial Reviewer: [id number] Initial Review Date: 08/14/2019 Generated: 08/16/19 4:37 pm Comments DCP- Discharge Planning Updated by [id number]: Malathi Ratliff on 08/16/19 2:[address] Patient Name: SAVANNA LI Encounter No: [id number] : 1955 Primary Insurance: MEDICARE A & B Anticipated DC Date: 08-15-2019 Planned Disposition: Inpatient Rehab External Planned Provider: : LATE ENTRY. ASSESSMENT COMPLETED AT 0830 08/16/2019 DCP follow-up note: CM RECIEVED RESULTS OF COVID -19 FROM NURSING. CALLED PATIENT TO VERIFY PLANS TO TRANSFER TO REHAB UPON DC. PATIENT IS AGEABLE WITH THIS PLAN. DCC IMM PROVIDED VIA PHONE CONVERSATION. CM CALLED REHAB AND SPOKE WITH OLGA. PROVIDED RESULTS OF THE NEGATIVE COVID TEST, REHAB IS IN AGREEMENT TO ADMIT PATIENT UPON DC. CM CALLED MARICEL AND PROVIDED ASSESSMENTS. MARICEL AND DR MORALES ARE IN AGREEMENT TO DC PATIENT TO IP REHAB. DC IMM PROVIDED TO PATIENT AND COPY PLACED ON CHART. Malathi Ratliff MSN,RN, CM DCP- Discharge Planning Updated by [id number]: Prabhu Bernal on 08/15/19 1:[address] Patient Name: SAVANNA LI Encounter No: [id number] : 1955 Primary Insurance: MEDICARE A & B Anticipated DC Date: 08-15-2019 Planned Disposition: Inpatient Rehab External Planned Provider: [facility] INPATIENT REHAB DCP follow-up note: CM RECEIVED DISCHARGE ORDER, MET WITH PT IN ROOM TO DISCUSS DISCHARGE PLANNING AND NEEDS. PT REPORTS HE NEEDS REHAB PRIOR TO GOING HOME. PT LIVES ALONE. PT STILL WANTS REHAB AT [place]. CHOICE COMPLETED AND SIGNED BY PT. CM SPOKE TO JAY OF INPATIENT REHAB, PT IS PENDING PHYSICAL THERAPY EVALUATION AND WILL ACCEPT IF PT QUALIFIES. PT PLACED BACK ON ISOLATION FOR PENDING COVID 19 TESTING, REHAB WILL NOT ACCEPT UNTIL RESULT IS BACK. INPATIENT REHAB PRESCREENING ORDER OBTAINED, PT SEEN AND EVALUATED BY THERAPY. THERAPY HAS SEEN PT, CM SPOKE TO JAY WHO REPORTS THEY WILL ACCEPT PT ONCE COVID 19 TEST IS RESULTED NEGATIVE. CM SPOKE TO ARIAS MCLEAN, CM SPOKE TO PT VIA PHONE WHO STATES HE IS NOT ABLE TO SELF QUARANTINE HIMSELF AT HOME AND WANTS TO STAY FOR REHAB, PT UNDERSTANDS HIS COVID 19 TEST WILL HAVE TO HAVE NEGATIVE RESULT. CM DISCUSSED IMPORTANT MESSAGE FROM MEDICARE AND THEN PASSED COPY TO PT IN ROOM. WHEN NEGATIVE RESULT RECEIVED FOR COVID 19 TESTING, NOTIFY INPATIENT REHAB AT [place] WHO WILL ACCEPT PT FOR INPATIENT REHAB. Prabhu Bernal, CASE MANAGEMENT DCP- Discharge Planning Updated by [id number]: Prabhu Bernal on 08/14/19 12:[address] Patient Name: SAVANNA LI Admission Status: ER Accout number: [id number] Admission Date: 08-13-2019 : 1955 Admission Diagnosis: Attending: JUAN MORALES Current LOS: 1 Anticipated DC Date: 08-14-2019 Planned Disposition: Home Primary Insurance: MEDICARE A & B Discharge Planning Comments: CM SPOKE WITH PT VIA ROOM PHONE TO DISCUSS DISCHARGE PLANNING AND NEEDS. PT REPORTS LIVING AT HOME INDEPENDENTLY AND ALONE. PT HAS NO MEDICAL EQUIPMENT AND NO OUTSIDE SERVICES ASSISTING IN THE HOME. CM DISCUSSED AVAILABILITY OF HOME HEALTH, REHAB SERVICES AND MEDICAL EQUIPMENT. PT THINKS HE MIGHT NEED SOME REHAB BEFORE GOING HOME, REPORTS HE WILL CALL HIS BOSS AT "THE STATION" OR HIS NEPHEW WHO HAS A "WOMAN" THAT HAS A CAR AND SOMEONE WILL PICK HIM UP FOR DISCHARGE HOME. CM DISCUSSED REHAB PROVIDERS, LOCATIONS AND SERVICES. PT WOULD LIKE REHAB AT [place] IF NEEDED. CHOICE COMPLETED. PT REPORTS FEELING WEAK AND MAY LIKE REHAB AT [place] BEFORE GOING HOME. PT WILL NEED THERAPY EVALUATION ONCE CLEARED PER INFECTION CONTROL PROTOCOL. CM TO FOLLOW AND ASSIST NEEDED. Scalp Specialist: Prabhu Bernal DCPIA - Discharge Planning Initial Assessment Updated by [id number]: Prabhu Bernal on 08/14/19 12:40 pm * Is the patient Alert and Oriented? Yes * How many steps to enter\\exit or inside your home? * PCP DR. HERNÁNDEZ * Pharmacy [facility] * Preadmission Environment Home Alone * ADLs Independent * Equipment None * Other Equipment NO MEDICAL EQUIPMENT PROVIDER PREFERENCE * List name and contact numbers for known caregivers / representatives who currently or will assist patient after discharge: LINDA ARCOS, SISTER, * Verbal permission to speak to the caregivers and representatives has been obtained from the patient. N/A * Community resources currently utilized None * Please name any agencies selected above. NONE * Additional services required to return to the preadmission environment? No * Can the patient safely return to the preadmission environment? Yes * Has this patient been hospitalized within the prior 30 days at any hospital? No Coverage Notice Reviewer: [id number] Margareth Bernal Notice Issued Date-Time: 08/15/2019 11:45 Notice Type: Patient Choice Letter Notice Delivered To: Patient Relationship to Patient: Technical Solutions Consultant Name: Delivery Method: HAND - Hand Delivered Temi Days: Prior Verbal Notification: Recipient Understood Notice: Yes Recipient Signature: Yes Med Rec Note Co-signed by Attending: Coverage Notice Comment: [facility] INPATIENT RE[facility] Reviewer: [id number] Margareth Bernal Notice Issued Date-Time: 08/14/2019 13:00 Notice Type: Patient Choice Letter Notice Delivered To: Patient Relationship to Patient: Technical Solutions Consultant Name: Delivery Method: HAND - Hand Delivered Temi Days: Prior Verbal Notification: Recipient Understood Notice: Yes Recipient Signature: Med Rec Note Co-signed by Attending: Coverage Notice Comment: [facility] INPATIENT REHAB SIGNATURE NOT OBTAINED DUE TO CURRENT INFECTION CONTROL PROTOCOL. Reviewer: [id number] Margareth Ratliff Notice Issued Date-Time: 08/16/2019 8:30 Notice Type: IM Discharge Notice Notice Delivered To: Patient Relationship to Patient: Technical Solutions Consultant Name: Delivery Method: HAND - Hand Delivered Temi Days: Prior Verbal Notification: Recipient Understood Notice: Yes Recipient Signature: Yes Med Rec Note Co-signed by Attending: Coverage Notice Comment: DC IMM PROVIDED Last DP export: 08/16/19 2:31 p Patient Name: SAVANNA LI Page [phone] at 1537 All edits/amendments must be made on the electronic document DICTATION DATE: 08/16/191536 DIRECTOR FIELD SERVICES: DELFINA 08/16/191536 RPT#: [id number] DC DATE:08/16/19 STATUS: DIS IN [facility] [address] [place] [address] END OF REPORT
--- NOTE | 2019-08-18 09:04 | MORECARE ---
CASE MANAGEMENT DISCHARGE SUMMARY PATIENT: SAVANNA LI UNIT: [id number] ADM DATE: 08/13/19 AGE: 63 : 51 SEX: M ROOM/BED: D.7710 AUTHOR: FLORESITA DIAZ PHYSICIAN: REFERRING PHYSICIAN: JUAN MORALES MD DATE OF SERVICE: 08/18/19 Discharge Plan Patient Name: SAVANNA LI Facility: [facility]:[place] : 1955 Planned Disposition: Inpatient Rehab Anticipated Discharge Date: 08/15/19 Discharge Date: 08/16/2019 Expected LOS: 2 Initial Reviewer: [id number] Initial Review Date: 08/14/2019 Generated: 08/18/19 10:04 am Comments DCP- Discharge Planning Updated by [id number]: Malathi Ratliff on 08/16/19 2:[address] Patient Name: SAVANNA LI Encounter No: [id number] : 1955 Primary Insurance: MEDICARE A & B Anticipated DC Date: 08-15-2019 Planned Disposition: Inpatient Rehab External Planned Provider: : LATE ENTRY. ASSESSMENT COMPLETED AT 0830 08/16/2019 DCP follow-up note: CM RECIEVED RESULTS OF COVID -19 FROM NURSING. CALLED PATIENT TO VERIFY PLANS TO TRANSFER TO REHAB UPON DC. PATIENT IS AGEABLE WITH THIS PLAN. DCC IMM PROVIDED VIA PHONE CONVERSATION. CM CALLED REHAB AND SPOKE WITH OLGA. PROVIDED RESULTS OF THE NEGATIVE COVID TEST, REHAB IS IN AGREEMENT TO ADMIT PATIENT UPON DC. CM CALLED MARICEL AND PROVIDED ASSESSMENTS. MARICEL AND DR MORALES ARE IN AGREEMENT TO DC PATIENT TO IP REHAB. DC IMM PROVIDED TO PATIENT AND COPY PLACED ON CHART. Malathi Ratliff MSN,RN, CM DCP- Discharge Planning Updated by [id number]: Prabhu Bernal on 08/15/19 1:[address] Patient Name: SAVANNA LI Encounter No: [id number] : 1955 Primary Insurance: MEDICARE A & B Anticipated DC Date: 08-15-2019 Planned Disposition: Inpatient Rehab External Planned Provider: [facility] INPATIENT REHAB DCP follow-up note: CM RECEIVED DISCHARGE ORDER, MET WITH PT IN ROOM TO DISCUSS DISCHARGE PLANNING AND NEEDS. PT REPORTS HE NEEDS REHAB PRIOR TO GOING HOME. PT LIVES ALONE. PT STILL WANTS REHAB AT [place]. CHOICE COMPLETED AND SIGNED BY PT. CM SPOKE TO JAY OF INPATIENT REHAB, PT IS PENDING PHYSICAL THERAPY EVALUATION AND WILL ACCEPT IF PT QUALIFIES. PT PLACED BACK ON ISOLATION FOR PENDING COVID 19 TESTING, REHAB WILL NOT ACCEPT UNTIL RESULT IS BACK. INPATIENT REHAB PRESCREENING ORDER OBTAINED, PT SEEN AND EVALUATED BY THERAPY. THERAPY HAS SEEN PT, CM SPOKE TO JAY WHO REPORTS THEY WILL ACCEPT PT ONCE COVID 19 TEST IS RESULTED NEGATIVE. CM SPOKE TO ARIAS MCLEAN, CM SPOKE TO PT VIA PHONE WHO STATES HE IS NOT ABLE TO SELF QUARANTINE HIMSELF AT HOME AND WANTS TO STAY FOR REHAB, PT UNDERSTANDS HIS COVID 19 TEST WILL HAVE TO HAVE NEGATIVE RESULT. CM DISCUSSED IMPORTANT MESSAGE FROM MEDICARE AND THEN PASSED COPY TO PT IN ROOM. WHEN NEGATIVE RESULT RECEIVED FOR COVID 19 TESTING, NOTIFY INPATIENT REHAB AT [place] WHO WILL ACCEPT PT FOR INPATIENT REHAB. Prabhu Bernal, CASE MANAGEMENT DCP- Discharge Planning Updated by [id number]: Prabhu Bernal on 08/14/19 12:[address] Patient Name: SAVANNA LI Admission Status: ER Accout number: [id number] Admission Date: 08-13-2019 : 1955 Admission Diagnosis: Attending: JUAN MORALES Current LOS: 1 Anticipated DC Date: 08-14-2019 Planned Disposition: Home Primary Insurance: MEDICARE A & B Discharge Planning Comments: CM SPOKE WITH PT VIA ROOM PHONE TO DISCUSS DISCHARGE PLANNING AND NEEDS. PT REPORTS LIVING AT HOME INDEPENDENTLY AND ALONE. PT HAS NO MEDICAL EQUIPMENT AND NO OUTSIDE SERVICES ASSISTING IN THE HOME. CM DISCUSSED AVAILABILITY OF HOME HEALTH, REHAB SERVICES AND MEDICAL EQUIPMENT. PT THINKS HE MIGHT NEED SOME REHAB BEFORE GOING HOME, REPORTS HE WILL CALL HIS BOSS AT "THE STATION" OR HIS NEPHEW WHO HAS A "WOMAN" THAT HAS A CAR AND SOMEONE WILL PICK HIM UP FOR DISCHARGE HOME. CM DISCUSSED REHAB PROVIDERS, LOCATIONS AND SERVICES. PT WOULD LIKE REHAB AT [place] IF NEEDED. CHOICE COMPLETED. PT REPORTS FEELING WEAK AND MAY LIKE REHAB AT [place] BEFORE GOING HOME. PT WILL NEED THERAPY EVALUATION ONCE CLEARED PER INFECTION CONTROL PROTOCOL. CM TO FOLLOW AND ASSIST NEEDED. Wedding Day Coordinator: Prabhu Bernal DCPIA - Discharge Planning Initial Assessment Updated by [id number]: Prabhu Bernal on 08/14/19 12:40 pm * Is the patient Alert and Oriented? Yes * How many steps to enter\\exit or inside your home? * PCP DR. HERNÁNDEZ * Pharmacy [facility] * Preadmission Environment Home Alone * ADLs Independent * Equipment None * Other Equipment NO MEDICAL EQUIPMENT PROVIDER PREFERENCE * List name and contact numbers for known caregivers / representatives who currently or will assist patient after discharge: LINDA ARCOS, SISTER, * Verbal permission to speak to the caregivers and representatives has been obtained from the patient. N/A * Community resources currently utilized None * Please name any agencies selected above. NONE * Additional services required to return to the preadmission environment? No * Can the patient safely return to the preadmission environment? Yes * Has this patient been hospitalized within the prior 30 days at any hospital? No Coverage Notice Reviewer: [id number] Margareth Bernal Notice Issued Date-Time: 08/14/2019 13:00 Notice Type: Patient Choice Letter Notice Delivered To: Patient Relationship to Patient: Piece Marker Small Arms Name: Delivery Method: HAND - Hand Delivered Temi Days: Prior Verbal Notification: Recipient Understood Notice: Yes Recipient Signature: Med Rec Note Co-signed by Attending: Coverage Notice Comment: [facility] INPATIENT REH[facility] SIGNATURE NOT OBTAINED DUE TO CURRENT INFECTION CONTROL PROTOCOL. Reviewer: [id number] Margareth Bernal Notice Issued Date-Time: 08/15/2019 11:45 Notice Type: Patient Choice Letter Notice Delivered To: Patient Relationship to Patient: Piece Marker Small Arms Name: Delivery Method: HAND - Hand Delivered Temi Days: Prior Verbal Notification: Recipient Understood Notice: Yes Recipient Signature: Yes Med Rec Note Co-signed by Attending: Coverage Notice Comment: [facility] INPATIENT [facility] Reviewer: [id number] Margareth Ratliff Notice Issued Date-Time: 08/16/2019 8:30 Notice Type: IM Discharge Notice Notice Delivered To: Patient Relationship to Patient: Piece Marker Small Arms Name: Delivery Method: HAND - Hand Delivered Temi Days: Prior Verbal Notification: Recipient Understood Notice: Yes Recipient Signature: Yes Med Rec Note Co-signed by Attending: Coverage Notice Comment: DC IMM PROVIDED Last DP export: 08/16/19 2:37 p Patient Name: SAVANNA LI Page [phone] at 0904 All edits/amendments must be made on the electronic document DICTATION DATE: 08/18/19903 BAND STRAIGHTENER: DELFINA 08/18/19903 RPT#: [id number] DC DATE:08/16/19 STATUS: DIS IN [facility] [address] [facility] [place] [address] END OF REPORT
== END 2019-08-16 12:43 | DRG 193 ==
LOC: D.ER 11:32 → D.M2 14:56
PROVIDERS: Emergency Medicine; ADMIT Internal Medicine Nephrology; ATTEND Internal Medicine Nephrology
DX: J18.9 Pneumonia, unspecified organism (principal); J96.01 Acute respiratory failure with hypoxia; N17.9 Acute kidney failure, unspecified; E87.1 Hypo-osmolality and hyponatremia; J44.0 Chronic obstructive pulmonary disease with (acute) lower respiratory infection; D64.9 Anemia, unspecified; E05.90 Thyrotoxicosis, unspecified without thyrotoxic crisis or storm; R73.9 Hyperglycemia, unspecified; Z03.818 Encounter for observation for suspected exposure to other biological agents ruled out

== ENCOUNTER 2019-08-16 12:53 | Inpatient (IN) | payer MEDICARE ==
[~2019-08-16] VITALS: Ht 167.6 cm; Wt 113.4 kg
[~2019-08-16 12:53] MED LIST: CATAPRES0.1 MG PO; LISINOPRIL10 MG PO; NORVASC10 MG PO; OMNICEF300 MG PO; SYMBICORT 80-10.2 GM INH; VENTOLIN HFA [SP8 GM INH; ZITHROMAX500 MG PO
[2019-08-16 13:05] VITALS: BP 127/70; BMI 40.4
--- NOTE | 2019-08-16 14:29 | NUR ---
ADMIT TO REHAB FROM [facility]. SOB AT REST. OXYGEN 2LNC IN USE. CAN STATE UP TO 8-0 WORDS PER BREATH. LUNG SOUNDS DIMINISHED TO ALL LOBES. DENIES PRODUCTIVE COUGH. BRACE TO LEFT KNEE NOTED. HE STATES HE WEARS LEFT KNEE BRACE FOR SEVERAL YEARS, NOT NEW INJURY. IS A NEW DIABETIC. GAVE INSTRUCTIONS ON WHEN TO EXPECT THERAPY AND PHYSICIAN ROUNDS. DENIES QUESTIONS.CALL LIGHT IN REACH.
--- NOTE | 2019-08-16 18:41 | NUR ---
SITTING UP ON SIDE OF BED. DENIES INCREASED SOB. USES URINAL AT BEDSIDE. CALL LIGHT IN REACH
--- NOTE | 2019-08-16 19:59 | NUR ---
PT LYING IN BED WATCHING TV. CL IN REACH. BED IN LOW SIDE RAILS X2. DENIES NEEDS OR PAIN AT THIS TIME. RESP EVEN AND UNLABORED. RESP EVEN AND UNLABORED. ON 2L OF O2 VIA NC. A/O X4. BOWEL ACTIVE X4. LUNGS CLEAR. WILL CONTINUE TO MONITOR.
--- NOTE | 2019-08-17 01:15 | NUR ---
I have reviewed this patient and I concur with the Shift Assessment completed by the Licensed Practical Nurse today this shift.
[2019-08-17 05:00] LABS: EOSINOPHILS 2.3 % (0-7); HEMATOCRIT 35.6 % (42.0-54.0); HEMOGLOBIN 11.6 g/dL (13.5-17.5); IMMATURE GRANULOCYTES 1.7 % (0-5); LYMPHOCYTES 33.9 % (15-50); MCH 30.5 pg (26.0-34.0); MCHC 32.6 g/dL (31.0-37.0); MCV 93.7 fL (80.0-100.0); MEAN PLATELET VOLUME 9.1 fL (7.4-10.4); MONOCYTES 14.3 % (2-11); NEUTROPHILS 46.8 % (40-80); PLATELET COUNT 169 10x3/uL (130-400); RDW 13.4 % (11.5-14.5)
[2019-08-17 05:20] LABS: CALC OSMOLALITY 272 mosm/kg (275-300); CALCIUM 8.7 mg/dL (8.5-10.1); CARBON DIOXIDE 28.4 mmol/L (21.0-32.0); CHLORIDE - SERUM 101 mmol/L (98-107); CREATININE - SERUM 0.9 mg/dL (0.6-1.3); GLUCOSE 132 mg/dL (74-106); POTASSIUM - SERUM 4.5 mmol/L (3.5-5.1); SODIUM 136 mmol/L (136-145); UREA NITROGEN 11 mg/dL (7-18); eGFR NON AFRICAN AMERICAN 90 mL/min (90-120)
[2019-08-17 09:23] VITALS: BP 118/75
--- NOTE | 2019-08-17 19:20 | NUR ---
PT LYING IN BED. DENIES NEEDS OR PAIN AT THIS TIME. BED IN LOW SIDE RAILS X2. LUNGS CLEAR. BOWEL ACTIVE X4. CL IN REACH. A/O X4. RESP EVEN AND UNLABORED. LEFT KNEE BRACE ON. O2 ON 2L VIA NC. WILL CONTINUE TO MONITOR.
--- NOTE | 2019-08-18 00:54 | NUR ---
I have reviewed this patient and I concur with the Shift Assessment completed by the Licensed Practical Nurse today this shift.
[2019-08-18 08:20] VITALS: BP 133/74
--- NOTE | 2019-08-18 08:30 | NUR ---
SITTING ON SIDE OF BED FOR BREAKFAST. DENIES INCREASED SOB. BREATH SOUNDS ARE AUDIBLE WITH RAW EAR. SOB WITH MINIMAL EXERTION. CALL LIGHT IN REACH
[2019-08-18 13:17] VITALS: BMI 40.3
--- NOTE | 2019-08-18 14:38 | NUR ---
Nutrition consult: Provided pt with DMT2 diet instruction. Pt is not really understanding the diet. Provided pt with dibates booklet and reviewed plate method. Pt will need ongoing education. RDN following.
--- NOTE | 2019-08-18 16:42 | NUR ---
LAYING DOWN IN BED WATCHING TV AND RESTING QUIETLY. DENIES NEEDS OR C/O. HAS SOB AND WEARS OXYGEN AT ALL TIMES 2LNC. DENIES COUGH. DENIES NEEDS. CALL LIGHT IN REACH, SIDE RAILS UP X2, BED IN LOWEST POSITION.
--- NOTE | 2019-08-18 19:30 | NUR ---
GREETED PATIENT AND INTRODUCED MYSELF HIS NURSE. PATIENT IS CURRENTLY SITTING IN WHEELCHAIR WATCHING TV. RESPIRATIONS EVEN. NO S/S OF DISTRESS. CALL LIGHT WITHIN REACH.
[2019-08-18 19:49] VITALS: BP 102/60
--- NOTE | 2019-08-18 23:43 | NUR ---
PT RESTING QUIETLY WITH EYES CLOSED. RESPIRATIONS EVEN. NO S/S OF DISTRESS. CALL LIGHT WITHIN REACH ON PATIENTS LEFT SIDE.
--- NOTE | 2019-08-19 03:04 | NUR ---
PT RESTING QUIETLY WITH EYES CLOSED. RESPIRATIONS EVEN. NO S/S OF DISTRESS. CALL LIGHT WITHIN REACH ON RIGHT SIDE OF PATIENT.
[2019-08-19 08:00] VITALS: BP 125/78
--- NOTE | 2019-08-19 08:00 | NUR ---
SHIFT ASSMT COMPLETED.BREAKFAST GIVEN.
--- NOTE | 2019-08-19 16:00 | NUR ---
SITTING UP IN WC.DENIES NEEDS.
--- NOTE | 2019-08-19 19:20 | NUR ---
GREETED PATIENT AND INTRODUCED MYSELF HIS NURSE. PATIENT IS CURRENTLY SITTING IN WHEELCHAIR WITH BRACE ON LEFT KNEE WATCHING TV. RESPIRATIONS EVEN. NO S/S OF DISTRESS. BEDSIDE SHIFT REPORT COMPLETE FROM OFF GOING NURSE. PATIENT DENIES ANY FURTHER NEEDS AT THIS TIME. CALL LIGHT WITHIN REACH LAYING ON BED.
[2019-08-19 19:33] VITALS: BP 130/76
--- NOTE | 2019-08-19 23:41 | NUR ---
PT RESTING QUIETLY WITH EYES CLOSED. RESPIRATIONS EVEN. NO S/S OF DISTRESS. CALL LIGHT IN REACH.
[2019-08-20 06:52] LABS: BASOPHILS 0.9 % (0-2); EOSINOPHILS 5.1 % (0-7); HEMATOCRIT 37.1 % (42.0-54.0); HEMOGLOBIN 12.2 g/dL (13.5-17.5); IMMATURE GRANULOCYTES 1.2 % (0-5); LYMPHOCYTES 34.6 % (15-50); MCH 30.7 pg (26.0-34.0); MCHC 32.9 g/dL (31.0-37.0); MCV 93.2 fL (80.0-100.0); MEAN PLATELET VOLUME 9.1 fL (7.4-10.4); MONOCYTES 6.5 % (2-11); NEUTROPHILS 51.7 % (40-80); RBC 3.98 10x6/uL (4.20-6.10); RDW 13.5 % (11.5-14.5); WBC 4.3 10x3/uL (4.8-10.8)
[2019-08-20 06:59] LABS: CALC OSMOLALITY 269 mosm/kg (275-300); CALCIUM 8.8 mg/dL (8.5-10.1); CARBON DIOXIDE 25.7 mmol/L (21.0-32.0); CHLORIDE - SERUM 101 mmol/L (98-107); CREATININE - SERUM 0.9 mg/dL (0.6-1.3); GLUCOSE 119 mg/dL (74-106); POTASSIUM - SERUM 4.9 mmol/L (3.5-5.1); SODIUM 133 mmol/L (136-145); UREA NITROGEN 20 mg/dL (7-18); eGFR NON AFRICAN AMERICAN 90 mL/min (90-120)
[2019-08-20 07:05] LABS: PLATELET COUNT 260 10x3/uL (130-400)
[2019-08-20 07:35] VITALS: BP 142/81
--- NOTE | 2019-08-20 08:00 | NUR ---
SHIFT ASSMT COMPLETED
--- NOTE | 2019-08-20 14:37 | NUR ---
CARE TEAM MEETING: PATIENT IS NEW TO THE UNIT AND WILL BE RA AT NEXT MEETING. PATIENT PCP IS DR. BE. HE HAS NO DME OR HOME HEALTH AT THIS TIME. DISCHARGE PLANS ARE FOR PATIENT TO RETURN HOME. WILL CONTINUE TO FOLLOW WITH PATIENT.
--- NOTE | 2019-08-20 19:57 | NUR ---
PT UP IN WC, TRASH EMPTIED, NO OTHER NEEDS NOTED, FALL PRECAUTIONS IN PLACE, FLUIDS/CALL LIGHT WITHIN REACH
--- NOTE | 2019-08-21 04:48 | NUR ---
PT ASLEEP FALL PRECAUTIONS IN PLACE, FLUIDS/CALL LIGHT WITHIN REACH
--- NOTE | 2019-08-21 07:45 | NUR ---
A/A/OX4. UP IN W/C AT BEDSIDE. DENIES ANY PAIN OR DISCOMFORT AND VOICES NO REQUESTS. RESP EVEN AND UNLABORED AT THIS TIME ON RA, STATES HE DOES GET A LITTLE SOB WITH EXERTION. SIDERAILS UP X 2, CALL LIGHT IN REACH AND BED IN LOW LOCKED POSITION. WILL CONTINUE POC.
[2019-08-21 07:58] VITALS: BP 132/64
--- NOTE | 2019-08-21 19:25 | NUR ---
PT LYING IN BED RESTING. CL IN REACH. DENIES NEEDS AT THIS TIME. BED IN LOW SIDE RAILS X2. A/O X4. LUNGS DIMINISHED. SOB WITH EXCERTION. BOWEL ACTIVE X4. RESP EVEN AND UNLABORED. WILL CONTINUE TO MONITOR.
--- NOTE | 2019-08-22 00:25 | NUR ---
I have reviewed this patient and I concur with the Shift Assessment completed by the Licensed Practical Nurse today this shift.
[2019-08-22 05:34] LABS: BASOPHILS 1.7 % (0-2); EOSINOPHILS 3.4 % (0-7); HEMATOCRIT 35.4 % (42.0-54.0); HEMOGLOBIN 11.4 g/dL (13.5-17.5); IMMATURE GRANULOCYTES 1.2 % (0-5); MCH 30.4 pg (26.0-34.0); MCHC 32.2 g/dL (31.0-37.0); MCV 94.4 fL (80.0-100.0); MONOCYTES 9.9 % (2-11); NEUTROPHILS 47.8 % (40-80); PLATELET COUNT 261 10x3/uL (130-400); RBC 3.75 10x6/uL (4.20-6.10); RDW 13.8 % (11.5-14.5); WBC 4.1 10x3/uL (4.8-10.8)
[2019-08-22 05:48] LABS: CALC OSMOLALITY 274 mosm/kg (275-300); CALCIUM 8.8 mg/dL (8.5-10.1); CARBON DIOXIDE 25.4 mmol/L (21.0-32.0); CHLORIDE - SERUM 104 mmol/L (98-107); GLUCOSE 104 mg/dL (74-106); POTASSIUM - SERUM 4.9 mmol/L (3.5-5.1); SODIUM 136 mmol/L (136-145); UREA NITROGEN 22 mg/dL (7-18); eGFR NON AFRICAN AMERICAN 80 mL/min (90-120)
[2019-08-22 07:38] VITALS: BP 138/66
--- NOTE | 2019-08-22 14:01 | NUR ---
SITTING UP IN WC IN ROOM WATCHING TV. DENIES PAIN OR INCREASED SOB. IS OVERALL WEAK BUT [employer] AND FEET PUSH AND PULL ARE EQUAL. CALL LIGHT IN REACH
--- NOTE | 2019-08-22 20:00 | NUR ---
PATIENT RECEIVED SITTING UP IN WHEELCHAIR. ASSESSMENT & VITAL SIGNS DONE. C/O ITCHING FEET. WILL GET ORDER FOR BENADRYL CREME. NO C/O PAIN. CALL LIGHT & URINALS WITHIN REACH. WILL CONTINUE TO MONITOR.
[2019-08-22 21:45] VITALS: BP 133/73
--- NOTE | 2019-08-22 22:00 | NUR ---
PATIENT BOTH FEET DRY & ITCHING. BENADRYL CREME APPLIED. PATIENT ASSIST INTO BED. ALARM ON. CALL LIGHT & URINALS WITHIN REACH. WILL CONTINUE TO MONITOR.
--- NOTE | 2019-08-23 03:00 | NUR ---
I have reviewed this patient and I concur with the Shift Assessment completed by the Licensed Practical Nurse today this shift.
--- NOTE | 2019-08-23 04:43 | NUR ---
PATIENT EYES CLOSED. RESPIRATIONS 18 & EVEN. BED LOW. ALARM ON. CALL LIGHT WITHIN REACH. WILL CONTINUE TO MONITOR.
[2019-08-23 08:00] VITALS: BP 127/79
--- NOTE | 2019-08-23 08:00 | NUR ---
SHIFT ASSMT COMPLETED.DENIES NEEDS.BREAKFAST GIVEN.
--- NOTE | 2019-08-23 12:00 | NUR ---
SITTING UP EAATING LUNCH.
[2019-08-23 20:00] VITALS: BP 101/54
--- NOTE | 2019-08-23 20:00 | NUR ---
PATIENT RECEIVED SITTING ON BED SIDE. ASSESSMENT & VITAL SIGNS DONE. NO C/O PAIN OR DISTRESS. BED LOW. CALL LIGHT & URINALS WITHIN REACH. WILL CONTINUE TO MONITOR.
--- NOTE | 2019-08-24 01:28 | NUR ---
I have reviewed this patient and I concur with the Shift Assessment completed by the Licensed Practical Nurse today this shift.
[2019-08-24 08:00] VITALS: BP 123/76
--- NOTE | 2019-08-24 08:00 | NUR ---
SHIFT ASSMT COMPLETED.BREAKFAST GIVEN.CL IN REACH.UP SITTING IN WC.
--- NOTE | 2019-08-24 12:00 | NUR ---
UP IN WC EATING LUNCH,
--- NOTE | 2019-08-24 16:00 | NUR ---
LYING DOWN TODAY AND RESTED;MOST OF DAY STAYED UP IN WC.
--- NOTE | 2019-08-24 19:05 | NUR ---
GREETED PATIENT AND INTRODUCED MYSELF HIS NURSE. PATIENT IS CURRENTLY SITTING IN WHEELCHAIR WATCHING TV. RESPIRATIONS EVEN. NO S/S OF DISTRESS. CALL LIGHT IN REACH LAYING ON BED. DENIES ANY NEEDS AT THIS TIME.
[2019-08-24 20:00] VITALS: BP 113/69
--- NOTE | 2019-08-25 03:25 | NUR ---
PT RESTING QUIETLY WITH EYES CLOSED. RESPIRATIONS EVEN. NO S/S OF DISTRESS. CALL LIGHT IN REACH.
[2019-08-25 06:47] LABS: BASOPHILS 1.4 % (0-2); EOSINOPHILS 3.2 % (0-7); HEMATOCRIT 38.7 % (42.0-54.0); HEMOGLOBIN 12.6 g/dL (13.5-17.5); IMMATURE GRANULOCYTES 0.4 % (0-5); LYMPHOCYTES 30.3 % (15-50); MCH 30.6 pg (26.0-34.0); MCHC 32.6 g/dL (31.0-37.0); MCV 93.9 fL (80.0-100.0); MONOCYTES 8.1 % (2-11); NEUTROPHILS 56.6 % (40-80); PLATELET COUNT 256 10x3/uL (130-400); RBC 4.12 10x6/uL (4.20-6.10); RDW 13.5 % (11.5-14.5); WBC 5.6 10x3/uL (4.8-10.8)
[2019-08-25 07:01] LABS: CALC OSMOLALITY 271 mosm/kg (275-300); CARBON DIOXIDE 23.4 mmol/L (21.0-32.0); CHLORIDE - SERUM 102 mmol/L (98-107); CREATININE - SERUM 0.9 mg/dL (0.6-1.3); GLUCOSE 104 mg/dL (74-106); POTASSIUM - SERUM 4.6 mmol/L (3.5-5.1); SODIUM 134 mmol/L (136-145); UREA NITROGEN 25 mg/dL (7-18); eGFR NON AFRICAN AMERICAN 90 mL/min (90-120)
[2019-08-25 07:54] VITALS: BP 120/71
--- NOTE | 2019-08-25 10:35 | NUR ---
SITTING IN ROOM WATCHING TV. IS PLEASANT AND COOPERATIVE. DENIES INCREASED SOB AT PRESENT. CALL LIGHT IN REACH
--- NOTE | 2019-08-25 18:56 | NUR ---
GREETED PATIENT AND INTRODUCED MYSELF HIS NURSE. PATIENT IS SITTING IN WHEELCHAIR WATCHING TV AT THIS TIME. RESPIRATIONS EVEN. NO S/S OF DISTRESS. DENIES ANY NEEDS AT THIS TIME. CALL LIGHT IN REACH.
[2019-08-25 19:45] VITALS: BP 128/65
--- NOTE | 2019-08-26 01:59 | NUR ---
PT RESTING QUIETLY WITH EYES CLOSED. RESPIRATIONS EVEN. NO S/S OF DISTRESS. CALL LIGHT IN REACH.
[2019-08-26 08:00] VITALS: BP 125/64
--- NOTE | 2019-08-26 13:21 | NUR ---
Nutrition follow-up: Diet: ADA consistent CHO PO intake 75-100% of meals Labs reviewed; Glucose under good control Wt: 249# PO intake good at this time RDN following.
[2019-08-26 20:00] VITALS: BP 103/57
--- NOTE | 2019-08-26 20:00 | NUR ---
PATIENT RECEIVED SITTING UP IN WHEELCHAIR AT BEDSIDE WATCHING TV. ASSESSMENT & VITAL SIGNS DONE. NO C/O PAIN OR DISTRESS. CALL LIGHT & URINALS WITHIN REACH. WILL CONTINUE TO MONITOR.
--- NOTE | 2019-08-26 21:35 | NUR ---
PATIENT SHOWER GIVEN. LINENS CHANGED. PATIENT RETURNED TO BED. CALL LIGHT & URINAL WITHIN REACH. WILL CONTINUE TO MONITOR.
--- NOTE | 2019-08-27 02:51 | NUR ---
PATIENT EYES CLOSED. RESPIRATIONS 18 & EVEN. BED LOW. CALL LIGHT & URINALS WITHIN REACH. WILL CONTINUE TO MONITOR.
--- NOTE | 2019-08-27 03:53 | NUR ---
I have reviewed this patient and I concur with the Shift Assessment completed by the Licensed Practical Nurse today this shift.
[2019-08-27 07:13] LABS: BASOPHILS 1.6 % (0-2); EOSINOPHILS 5.7 % (0-7); HEMOGLOBIN 12.3 g/dL (13.5-17.5); IMMATURE GRANULOCYTES 1.2 % (0-5); LYMPHOCYTES 25.4 % (15-50); MCH 30.9 pg (26.0-34.0); MCHC 33.2 g/dL (31.0-37.0); MEAN PLATELET VOLUME 8.8 fL (7.4-10.4); MONOCYTES 6.7 % (2-11); NEUTROPHILS 59.4 % (40-80); PLATELET COUNT 222 10x3/uL (130-400); RBC 3.98 10x6/uL (4.20-6.10); RDW 13.3 % (11.5-14.5); WBC 4.9 10x3/uL (4.8-10.8)
[2019-08-27 07:28] LABS: CALC OSMOLALITY 274 mosm/kg (275-300); CALCIUM 8.9 mg/dL (8.5-10.1); CARBON DIOXIDE 26.4 mmol/L (21.0-32.0); CHLORIDE - SERUM 101 mmol/L (98-107); GLUCOSE 97 mg/dL (74-106); POTASSIUM - SERUM 4.8 mmol/L (3.5-5.1); SODIUM 135 mmol/L (136-145); UREA NITROGEN 26 mg/dL (7-18); eGFR NON AFRICAN AMERICAN 80 mL/min (90-120)
--- NOTE | 2019-08-27 08:00 | NUR ---
SHIFT ASSMT COMPLETED.
[2019-08-27 08:56] VITALS: BP 130/66
--- NOTE | 2019-08-27 12:00 | NUR ---
SITTING UP IN WC EATING LUNCH.
[2019-08-27 15:52] VITALS: Ht 167.6 cm; Wt 113.4 kg
--- NOTE | 2019-08-27 15:55 | NUR ---
CARE TEAM MEETING: PATIENT DOING VERY WELL IN THERAPY AND HIS TENATIVE DISCHARGE DATE IS 08/29/19. WILL CONTINUE TO FOLLOW WITH PATIENT AND WILL ASSIT WITH NEEDS.
--- NOTE | 2019-08-27 19:45 | NUR ---
PT UP IN WC, NO NEEDS NOTED, FALL PRECAUTIONS IN PLACE, FLUIDS/CALL LIGHT WITHIN REACH
[2019-08-28 01:55] VITALS: BP 128/70
--- NOTE | 2019-08-28 08:00 | NUR ---
SHIFT ASSMT COMPLETED.PLAN TO DC HOME TOMORROW.
[2019-08-28 08:18] VITALS: BP 123/75
--- NOTE | 2019-08-28 19:41 | NUR ---
PT UP IN WC, NO NEEDS NOTED, TRANSFERS SELF WELL, FLUIDS/CALL LIGHT WITHIN REACH
[2019-08-29 00:07] VITALS: BP 127/77
--- NOTE | 2019-08-29 00:47 | NUR ---
PT ASLEEP, AROUSES EASILY TO VOICE, NO NEEDS NOTED, FALL PRECAUTIONS IN PLACE, FLUIDS/CALL LIGHT WITHIN REACH
[2019-08-29 08:00] VITALS: BP 139/74
--- NOTE | 2019-08-29 08:00 | NUR ---
SITTING UP IN WC IN ROOM. DENIES NEEDS OR C/O. ANXIOUS TO GO HOME. DENIES WORSE SOB AT REST OR WITH EXERTION. LUNG SOUNDS DIMINISHED TO ALL LOBES. CALL LIGHT IN REACH
--- NOTE | 2019-08-29 10:20 | NUR ---
PATIENT DISCHARGING HOME TODAY. PATIENT DECLINES HOME HEALTH AND ANY DME NEEDS AT THIS TIME. DR. HERNÁNDEZ 09/08/19 @ 10:15. PATIENT CHOICE FORM FOR DECLINING HOME HEALTH SINGED AND FILED IN CHART. [facility] FORMS SIGNED, EXPLAINED AND FILED IN CHART. ONE OF EACH FORM GIVEN TO PATIENT. DISCHARGE INSTRUCTIONS FAXED TO PCP [facility] REVIEWED WITH PATIENT PER PRIMARY NURSE.
--- NOTE | 2019-08-29 14:12 | RHP ---
PATIENT: SAVANNA LI MEDICAL RECORD: [id number] ACCOUNT: [id number] LOCATION:[id number] : [id number] ADMISSION DATE: 08/16/19 REHABILITATION HISTORY AND PHYSICAL EXAMINATION POST ADMISSION PHYSICIAN EXAMINATION ADMITTING DIAGNOSIS: Myopathy secondary to pneumonia. HISTORY OF PRESENT ILLNESS: The patient is a 63-year-old gentleman who is admitted secondary to acute hypoxic respiratory failure, presented to Emergency Room Department on 08/13/2019, complaining of gradual onset of body weakness, chills, dyspnea and cough. 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 He was febrile upon initial exam. He had decreased breath sounds especially in his right lower lobe. He had a noted elevated CRP and elevated lymphocytosis, had ABGs done. The patient was seen and evaluated, given thiamin, iron, mag, placed on Zithromax, Rocephin and followed up on his COVID-19. Previously, he was living alone, was independent, worked a pre algebra teacher job. He is currently mod to max assist for ADLs and mobility. He is weak. He fatigues easily, has increased dyspnea on exertion. He has a wide gait and shuffling gait. 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 COMORBIDITIES: Include acute hypoxic respiratory failure, right lower lobe pneumonia, dyspnea, COPD, hypoxia, fatigue, weakness, normocytic anemia, acute kidney injury, hyperglycemia, mild to moderate tricuspid regurg, and history of alcohol use. PAST MEDICAL HISTORY: Significant for COPD and alcohol use. PAST SURGICAL HISTORY: None. ALLERGIES: No known drug allergies. CURRENT MEDICATIONS: Include Floranex daily. He is on lisinopril 10 mg daily, Catapres 0.1 mg daily, Zithromax 500 mg daily, amlodipine 10 mg daily, Omnicef 300 mg b.i.d. He is on Brovana updrafts, budesonide b.i.d., low-resistant sliding scale. HABITS: Does have a history of tobacco and alcohol use. FAMILY HISTORY: Noncontributory. SOCIAL HISTORY: The patient hopes to return back to his prior level of functioning. REVIEW OF SYSTEMS: GENERAL: Does complain of some weakness and fatigue. HEENT: Denies cold, cough, or congestion. CARDIOVASCULAR: Denies any chest pain. LUNGS: Does complain of occasional shortness of breath. PHYSICAL EXAMINATION: VITAL SIGNS: Stable, afebrile. GENERAL: A somewhat obese gentleman, in no acute distress, alert upon exam. HEENT: Normocephalic and atraumatic. Mucosa moist. HISTORY AND PHYSICAL [id number] SAVANNA LI NECK: Supple. No lymphadenopathy. LUNGS: Clear in upper lopez. He does have decreased breath sounds in the bases secondary to body habitus. ABDOMEN: Soft, benign, and nondistended. Positive bowel sounds times 4. EXTREMITIES: No clubbing, cyanosis or edema. NEUROLOGIC: Does have noted weakness. LABORATORY DATA: Blood work shows some elevated blood sugars. 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 The patient continued to make improvement. We instituted the following multidisciplinary therapies including but not limited to physical, occupational, respiratory, speech, nutritional services, prosthetics and orthotics. Given his complex medical condition and risks for more complications, rehabilitation services cannot be provided at a low level of care such as skilled nurse facility. PLAN: 1. Admit to [facility] for intensive inpatient therapy to include the following disciplines: A. Physical therapy to improve gait, all transfer skills and bed mobility to a modified independent level. B. Occupational therapy to improve activities of daily living. C. Case management to assist with discharge planning and placement options. D. Nutrition to assist with nutritional needs. E. Rehabilitation nursing to assist in monitoring the patient's underlying medical conditions and to assist with any type of bowel or bladder management. 2. The patient's current medication and medical care will be continued. 3. The patient will be placed on standard fall precautions. 4. The patient's estimated length of stay is approximately 7-10 days. 5. We will discuss the patient during care team staff meeting this week. TRANSINT:[id number] Voice Confirmation ID: [id number] DOCUMENT ID: [id number] BRENDON notes whether there has been none or any medical/functional change since admission: - No change since pre-admission screen. BRENDON attests patient continues to be appropriate for IRF: - Continues to be appropriate. JOSH WALLS MD at [id number] CC: [id number] DICTATION DATE: 08/18/19914 GED TUTOR: 1955 ADM IN [facility] [address] [id number]
--- NOTE | 2019-08-29 15:00 | NUR ---
DC HOME WITH ALL PERSONAL BELONGINGS. MEDS CALLED INTO PHARMACY. REVIEWED MEDS, DC PLAN AND FOLLOW UP APPT WITH PT. EPHRAIM DELIVERED TO PT WHILE AT HOSP. FRIEND CAME TO GET HIM. LEFT FLOOR IN .
== END 2019-08-29 15:00 | disposition home or self-care (01) | DRG 91 ==
LOC: D.REHAB 12:53
PROVIDERS: Emergency Medicine; ADMIT Internal Medicine Nephrology; ATTEND Internal Medicine Nephrology
DX: G72.9 Myopathy, unspecified (principal); J96.01 Acute respiratory failure with hypoxia; J18.9 Pneumonia, unspecified organism; N17.9 Acute kidney failure, unspecified; J44.0 Chronic obstructive pulmonary disease with (acute) lower respiratory infection; R53.83 Other fatigue; R53.1 Weakness; D64.9 Anemia, unspecified; R73.9 Hyperglycemia, unspecified; I07.1 Rheumatic tricuspid insufficiency; Z87.891 Personal history of nicotine dependence; I10 Essential (primary) hypertension; E05.90 Thyrotoxicosis, unspecified without thyrotoxic crisis or storm